=== PATIENT | male | born 1980 | race Caucasian/White ===

== ENCOUNTER 2017-02-13 09:02 | Emergency (ER) | payer MEDICAID ==
[~2017-02-13] VITALS: Ht 190.5 cm; Wt 141.8 kg
[~2017-02-13 09:02] MED LIST: GABA100C4 PO; IBUP800T23 PO; ROBA500T PO; TRIA0.1O TOP; VENL75 PO
[2017-02-13 09:05] VITALS: BP 151/79; PULSE 71; RESP 16; TEMP 97.7; O2SAT 96
[2017-02-13] MEDS ORDERED: TRAZ50TA12 PO (09:19)
[2017-02-13] MEDS ORDERED: VENL150C39 PO (09:19)
[2017-02-13] MEDS ORDERED: ZOLP10TA3 PO (09:19)
[2017-02-13] MEDS ORDERED: LAMO150T PO (09:19)
[2017-02-13] MEDS ORDERED: GABA600T PO (09:19)
[2017-02-13 09:57] LABS: AUTOMATED NEUTROPHIL # 4.2 TH/MM3 (1.8-7.7); BASOPHIL # 0.2 TH/MM3 (0-0.2); BASOPHIL % 3.6 % (0.0-2.0); EOSINOPHIL # 0.3 TH/MM3 (0-0.4); EOSINOPHIL % 4.8 % (0.0-4.0); HEMATOCRIT 43.4 % (39.0-51.0); HEMO FLAGS DIFF FINAL; LYMPH % 24.2 % (9.0-44.0); LYMPHOCYTE # 1.6 TH/MM3 (1.0-4.8); MEAN CELL VOLUME 83.3 FL (80.0-100.0); MEAN CORPUSCULAR HEMOGLOBIN 28.1 PG (27.0-34.0); MEAN CORPUSCULAR HGB CONC 33.8 % (32.0-36.0); MONO % 6.3 % (0.0-8.0); NEUT % 61.1 % (16.0-70.0); PLATELET COUNT 252 TH/MM3 (150-450); RED BLOOD COUNT 5.21 MIL/MM3 (4.50-5.90); RED CELL DISTRIBUTION WIDTH 13.4 % (11.6-17.2); WHITE BLOOD COUNT 6.7 TH/MM3 (4.0-11.0)
[2017-02-13 10:21] LABS: BICARBONATE 27.8 MEQ/L (21.0-32.0); POTASSIUM 3.8 MEQ/L (3.5-5.1)
[2017-02-13 10:25] VITALS: BP 133/75; PULSE 61; RESP 16; O2SAT 95
[2017-02-13 10:25] LABS: BLOOD, URINE LARGE (NEG); GLUCOSE,URINE NEG (NEG); KETONE, URINE NEG (NEG); NITRITE,URINE NEG (NEG)
[2017-02-13] MEDS ORDERED: SODIUM CHLORID 0.9% 500 ML INJ 500 ML IV ONE (10:30)
[2017-02-13 10:34] LABS: METHOD OF COLLECTION CLEAN CATCH; URINE COLOR YELLOW (YELLW/STRAW)
[2017-02-13 10:35] LABS: COMMENT (UR) CULTURE INDICATED; CULTURE IF INDICATED CULTURE INDICATED; RBC, URINE INNUM /hpf (0-3); SQUAMOUS EPITHELIAL CELL URINE 0-5 /hpf (0-5); WBC, URINE 15-19 /hpf (0-5)
--- NOTE | 2017-02-13 10:53 | RADHPO ---
EXAM DATE/TIME: 02/13/2017 10:32 [place] COMPARISON: No previous studies available for comparison. INDICATIONS : Hematuria. ORAL CONTRAST: No oral contrast ingested. RADIATION DOSE: 24.98 CTDIvol (mGy) MEDICAL HISTORY : None SURGICAL HISTORY : None. ENCOUNTER: Initial ACUITY: 1 day PAIN SCALE: 0/10 LOCATION: abdomen TECHNIQUE: Volumetric scanning of the abdomen and pelvis was performed. Using automated exposure control and ad justment of the mA and/or kV according to patient size, radiation dose was kept as low as reasonably achievable to obtain optimal diagnostic quality images. FINDINGS: LOWER LUNGS: The visualized lower lungs are clear. LIVER: Homogeneous density without lesion. There is no dilation of the biliary tree. No calcified gallston es. SPLEEN: Normal size without lesion. PANCREAS: Within normal limits. KIDNEYS: Normal in size and shape. There is no mass, stone, or hydronephrosis. ADRENAL GLANDS: Within normal limits. VASCULAR: There is no aortic aneurysm. BOWEL/MESENTERY: The stomach, small bowel, and colon demonstrate no acute abnormality. There is no free intraperitone al air or fluid. ABDOMINAL WALL: Within normal limits. RETROPERITONEUM: There is no lymphadenopathy. BLADDER: No wall thickening or mass. REPRODUCTIVE: Within normal limits. INGUINAL: There is no lymphadenopathy or hernia. MUSCULOSKELETAL: Within normal limits for patient age. CONCLUSION: The kidneys, ureters and bladder are unremarkable with no visualized mass or calculi. There is no obs truction. Adebayo Barragan MD on February 13, 2017 at 10:50 Board Certified Radiologist. This report was verified electronically.
[2017-02-13] MEDS ORDERED: CIPR-9 PO (11:08)
--- NOTE | 2017-02-13 11:08 | PD ---
HPI Chief Complaint: Complaint Time Seen by Provider: 09:22 Travel History International Travel<30 days: No Contact w/Intl Traveler<30days: No Traveled to known affect area: No History of Present Illness HPI Patient is a 36 year old male who comes in complaining of hematuria. He says he noticed blood in his underwear this morning and blood came out when he went to urinate. He says he has not had any pain. He denies flank pain, burning with urination, discharge or penile lesions. He says he has not had intercourse in the past 2 months. He denies any trauma. He denies fever or chills. PFSH Past Medical History Diabetes: No Diminished Hearing: No Musculoskeletal: Yes (sciatic nerve pain, SPINAL STENOSIS) Psychiatric: Yes (PTSD) Integumentary: Yes (psoriasis) Tetanus Vaccination: < 5 Years Influenza Vaccination: No Social History Alcohol Use: No Tobacco Use: Yes (1 PPD) Substance Use: Yes (occ marijuana) Allergies-Medications (Allergen,Severity, Reaction): Coded Allergies: No Known Allergies (Unverified , 02/13/17) Reported Meds & Prescriptions Reported Meds & Active Scripts Active Cipro (Ciprofloxacin HCl) 500 Mg Tab 500 Mg PO BID 10 Days Reported Zolpidem (Zolpidem Tartrate) 10 Mg Tab 10 Mg PO HS PRN Trazodone (Trazodone HCl) 50 Mg Tab 50 Mg PO HS Gabapentin 600 Mg Tab 600 Mg PO TID Lamotrigine 150 Mg Tab 150 Mg PO DAILY Venlafaxine ER 24 HR (Venlafaxine HCl) 150 Mg Cap 300 Mg PO DAILY Review of Systems Except as stated in HPI: all other systems reviewed are Neg General / Constitutional: No: Fever, Chills HENT: No: Headaches, Lightheadedness Cardiovascular: No: Chest Pain or Discomfort Respiratory: No: Shortness of Breath Gastrointestinal: No: Nausea, Vomiting Genitourinary: Positive: Hematuria, No: Flank Pain Skin: No Rash, No Change in Pigmentation Neurologic: No: Weakness, Dizziness Physical Exam Narrative GENERAL: Awake and alert, in no acute distress. SKIN: Focused skin assessment warm/dry. HEAD: Atraumatic. Normocephalic. EYES: Pupils equal and round. No scleral icterus. ENT: Mucous membranes pink and moist. NECK: Trachea midline. No JVD. CARDIOVASCULAR: Regular rate and rhythm. No murmur appreciated. RESPIRATORY: No accessory muscle use. Clear to auscultation. Breath sounds equal bilaterally. GASTROINTESTINAL: Abdomen soft, non-tender, nondistended. No CVA tenderness. MUSCULOSKELETAL: No obvious deformities. No clubbing. No cyanosis. No edema. NEUROLOGICAL: Awake and alert. No obvious cranial nerve deficits. Motor grossly within normal limits. Normal speech. PSYCHIATRIC: Appropriate mood and affect; insight and judgment normal. Data Data Last Documented VS Vital Signs Date Time Temp Pulse Resp B/P Pulse Ox O2 Delivery O2 Flow Rate FiO2 02/13/17 11:34 64 16 132/74 96 02/13/17 10:25 Room Air 02/13/17 09:05 97.7 Orders Urinalysis - C+S If Indicated (02/13/17 09:06) Complete Blood Count With Diff (02/13/17 09:42) Basic Metabolic Panel (Bmp) (02/13/17 09:42) Ct Abd/Pel W/O Iv Contrast (02/13/17 ) Sodium Chlorid 0.9% 500 Ml Inj (Ns 500 M (02/13/17 10:30) Urine Culture (02/13/17 10:15) Labs Laboratory Tests Test 02/13/17 02/13/17 09:50 10:15 White Blood Count 6.7 TH/MM3 Red Blood Count 5.21 MIL/MM3 Hemoglobin 14.6 GM/DL Hematocrit 43.4 % Mean Corpuscular Volume 83.3 FL Mean Corpuscular Hemoglobin 28.1 PG Mean Corpuscular Hemoglobin 33.8 % Concent Red Cell Distribution Width 13.4 % Platelet Count 252 TH/MM3 Mean Platelet Volume 8.5 FL Neutrophils (%) (Auto) 61.1 % Lymphocytes (%) (Auto) 24.2 % Monocytes (%) (Auto) 6.3 % Eosinophils (%) (Auto) 4.8 % Basophils (%) (Auto) 3.6 % Neutrophils # (Auto) 4.2 TH/MM3 Lymphocytes # (Auto) 1.6 TH/MM3 Monocytes # (Auto) 0.4 TH/MM3 Eosinophils # (Auto) 0.3 TH/MM3 Basophils # (Auto) 0.2 TH/MM3 CBC Comment DIFF FINAL Differential Comment Sodium Level 143 MEQ/L Potassium Level 3.8 MEQ/L Chloride Level 106 MEQ/L Carbon Dioxide Level 27.8 MEQ/L Anion Gap 9 MEQ/L Blood Urea Nitrogen 11 MG/DL Creatinine 0.85 MG/DL Estimat Glomerular Filtration 103 ML/MIN Rate Random Glucose 106 MG/DL Calcium Level 8.7 MG/DL Urine Collection Type CLEAN CATCH Urine Color YELLOW Urine Turbidity SLIGHT Urine pH 7.0 Urine Specific Sims 1.015 Urine Protein TRACE mg/dL Urine Glucose (UA) NEG mg/dL Urine Ketones NEG mg/dL Urine Occult Blood LARGE Urine Nitrite NEG Urine Bilirubin NEG Urine Leukocyte Esterase TRACE Urine RBC INNUM /hpf Urine WBC 15-19 /hpf Urine Squamous Epithelial 0-5 /hpf Cells Microscopic Urinalysis Comment CULTURE INDICATED Urine Collection Time 10:15 [facility] Medical Decision Making Medical Screen Exam Complete: Yes Emergency Medical Condition: Yes Medical Record Reviewed: Yes Differential Diagnosis UTI versus hemorrhagic cystitis versus pyelonephritis versus renal stone Narrative Course Patient is a 36-year-old male comes in complaining of hematuria. Exam shows no acute abnormalities. Urine is grossly bloody. IV established, labs sent. Hemoglobin is within normal limits. Creatinine is within normal limits. CT of the abdomen and pelvis performed shows no acute abnormalities. Last Impressions Abdomen/Pelvis CT 02/13/17 0000 Signed Impressions: Service Date/Time: Monday, February 13, 2017 10:32 - CONCLUSION: The kidneys, ureters and bladder are unremarkable with no visualized mass or calculi. There is no obstruction. Adebayo Barragan MD Urinalysis is positive for blood. We'll treat with antibiotics for presumed hemorrhagic cystitis. Patient advised to follow up with urology. Advised to return to the ED as needed for any worsening symptoms. Diagnosis Primary Impression: Hemorrhagic cystitis Referrals: Clifford Garcia MD call for appointment Patient Instructions: General Instructions, Hematuria (ED), Urinary Tract Infection in Women (ED) Additional Instructions: Take all of your antibiotics. Follow up with urology. Dr. Garcia: [address] [address] [phone] Return to the ED as needed for any worsening symptoms. Scripts Ciprofloxacin (Cipro)500 Mg [id number] Mg PO BID 10 Days Ref 0 Prov:Rachel Lewis MD 02/13/17 Disposition: 01 DISCHARGE HOME Condition: Stable Rachel Lewis MD February 13, 2017 11:08
[2017-02-13 11:34] VITALS: BP 132/74
== END 2017-02-13 11:37 | disposition home or self-care (01) ==
LOC: PHED 09:02
DX: N30.91 Cystitis, unspecified with hematuria (principal); F17.210 Nicotine dependence, cigarettes, uncomplicated; F43.10 Post-traumatic stress disorder, unspecified
CPT/HCPCS: 74176; 80048; 81001; 85025; 87086; 96360; 99284; J7040

== ENCOUNTER 2018-01-29 08:13 | Emergency (ER) | payer MEDICAID ==
[~2018-01-29] VITALS: Ht 188 cm; Wt 146.0 kg
[~2018-01-29 08:13] MED LIST changes: +CIPR-9 PO; -GABA100C4 PO; +GABA600T PO; -IBUP800T23 PO; +LAMO150T PO; -ROBA500T PO; +TRAZ50TA12 PO; -TRIA0.1O TOP; +VENL150C39 PO; -VENL75 PO; +ZOLP10TA3 PO
[2018-01-29 08:17] VITALS: BP 180/112; PULSE 63; RESP 16; TEMP 98.5; O2SAT 97
[2018-01-29] MEDS ORDERED: TRAM50TA PO (08:29)
[2018-01-29] MEDS ORDERED: CEPH-460 PO (09:00)
--- NOTE | 2018-01-29 09:01 | PD ---
HPI Chief Complaint: Oral / Dental Pain or Problem Time Seen by Provider: 08:57 Travel History International Travel<30 days: No Contact w/Intl Traveler<30days: No Traveled to known affect area: No History of Present Illness HPI Patient presents with complaints of left upper and lower dental pain with erythema edema and discomfort for 2 days. Denies nausea vomiting diarrhea or fever. Stop smoking 8 months ago. Pain 5 out of 10. No aggravating or alleviating factors PFSH Past Medical History Diabetes: No Diminished Hearing: No Musculoskeletal: Yes (sciatic nerve pain, SPINAL STENOSIS) Psychiatric: Yes (PTSD) Integumentary: Yes (psoriasis) Influenza Vaccination: No Social History Alcohol Use: No Tobacco Use: No Substance Use: Yes (occ marijuana) Allergies-Medications (Allergen,Severity, Reaction): Coded Allergies: No Known Allergies (Unverified Adverse Reaction, Unknown, 01/29/18) Reported Meds & Prescriptions Reported Meds & Active Scripts Active Reported Tramadol (Tramadol HCl) 50 Mg Tab 50 Mg PO Q8H PRN Zolpidem (Zolpidem Tartrate) 10 Mg Tab 10 Mg PO HS PRN Gabapentin 600 Mg Tab 600 Mg PO TID Venlafaxine ER 24 HR (Venlafaxine HCl) 150 Mg Cap 300 Mg PO DAILY Review of Systems General / Constitutional: No: Fever Eyes: No: Visual changes HENT: Positive: Dental Difficulties, No: Headaches Cardiovascular: No: Chest Pain or Discomfort Respiratory: No: Shortness of Breath Gastrointestinal: No: Abdominal Pain Genitourinary: No: Dysuria Musculoskeletal: No: Pain Skin: No Rash Neurologic: No: Weakness Psychiatric: No: Depression Endocrine: No: Polydipsia Hematologic/Lymphatic: No: Easy Bruising Physical Exam Narrative GENERAL: Well-nourished, well-developed patient. Oral mucosa pink moist and healthy in appearance, poor dentition in all hick[place], examination of the left upper and lower jaw does reveal some erythema and mild swelling. SKIN: Focused skin assessment warm/dry. HEAD: Normocephalic. EYES: No scleral icterus. No injection or drainage. NECK: Supple, trachea midline. No JVD or lymphadenopathy. CARDIOVASCULAR: Regular rate and rhythm without murmurs, gallops, or rubs. RESPIRATORY: Breath sounds equal bilaterally. No accessory muscle use. GASTROINTESTINAL: Abdomen soft, non-tender, nondistended. MUSCULOSKELETAL: No cyanosis, or edema. BACK: Nontender without obvious deformity. No CVA tenderness. Data Data Last Documented VS Vital Signs Date Time Temp Pulse Resp B/P (MAP) Pulse Ox O2 Delivery O2 Flow Rate FiO2 01/29/18 08:17 98.5 63 16 180/112 (134) 97 MDM Medical Decision Making Medical Screen Exam Complete: Yes Emergency Medical Condition: Yes Differential Diagnosis Dentalgia, oral abscess, gingivitis Narrative Course Assessment plan discussed with patient at bedside Diagnosis Primary Impression: Dentalgia Patient Instructions: General Instructions Additional Instructions: Motrin or Tylenol for pain. Encourage good oral hygiene, encouraged antibacterial mouthwash regularly. Follow-up with dentist. Return to emergency room with any onset of new symptoms Med/Other Pt SpecificInfo: Prescription(s) given Scripts Cephalexin (Keflex) 500 Mg Cap 500 MG PO Q12H for Infection for 10 Days, #20 CAP 0 Refills Prov: Gene Galeano MD 01/29/18 Disposition: 01 DISCHARGE HOME Condition: Good Gene Galeano MD Jan 29, 2018 09:01
== END 2018-01-29 09:06 | disposition home or self-care (01) ==
LOC: PHEFT 08:13
DX: K08.89 Other specified disorders of teeth and supporting structures (principal); F43.10 Post-traumatic stress disorder, unspecified; L40.9 Psoriasis, unspecified; F12.90 Cannabis use, unspecified, uncomplicated
CPT/HCPCS: 99283